=== PATIENT | female | born 1990 | race Caucasian/White ===

== ENCOUNTER → 2024-12-01 | Outpatient (CLI) | payer OTHER | LOC: M WHC 13:09 | PROVIDERS: ATTEND Nurse Practitioner Family | DX: N63.20 Unspecified lump in the left breast, unspecified quadrant (principal); N60.12 Diffuse cystic mastopathy of left breast | CPT/HCPCS: 76641; 77066; G0279 ==

== ENCOUNTER → 2024-12-22 | Outpatient (REF) | payer OTHER | LOC: M PLALAB 11:10 | PROVIDERS: ATTEND Nurse Practitioner Family | DX: N89.8 Other specified noninflammatory disorders of vagina (principal) ==

== ENCOUNTER → 2025-01-26 | Outpatient (CLI) | payer OTHER | LOC: M RADPRO 11:53 | PROVIDERS: ATTEND Obstetrics & Gynecology | DX: N97.9 Female infertility, unspecified (principal) ==

== ENCOUNTER → 2025-03-26 | Outpatient (CLI) | payer OTHER ==
[~2025-03-26] MED LIST: ISOVUE-370 76% 100 ML VIAL As Ordered ONE; SILVER NITRATE APPLICATOR (1 = QTY 10) As Ordered ONE
== END ==
LOC: M RADPRO 12:01
PROVIDERS: ATTEND Obstetrics & Gynecology
DX: N97.9 Female infertility, unspecified (principal)
CPT/HCPCS: 58340; 74740; Q9967